=== PATIENT | female | born 1980 | race Caucasian/White ===

== ENCOUNTER → 2017-03-20 | Outpatient (CLI) | payer BC ==
--- NOTE | 2017-03-20 16:44 | ECHOF ---
Referral Reason:I49.9 arrhythmia MEASUREMENTS -------- HEIGHT: 170.2 cm WEIGHT: 61.2 kg BP: RVIDd: 2.3 cm (< 3.3) IVSd: 0.8 cm (0.6 - 1.1) LVIDd: 4.2 cm (3.9 - 5.3) LVPWd: 0.8 cm (0.6 - 1.1) IVSs: 1.6 cm LVIDs: 2.4 cm LVPWs: 1.6 cm LAESV Index (A-L): 12.47 ml/m Ao Diam: 2.5 cm (2.0 - 3.7) AV Cusp: 1.9 cm (1.5 - 2.6) LA Diam: 1.9 cm (2.7 - 3.8) MV EXCURSION: 11.540 mm (> 18.000) MV EF SLOPE: 100 mm/s (70 - 150) EPSS: 0.9 cm MV E Gregg: 0.79 m/s MV DecT: 156 ms MV A Gregg: 0.69 m/s MV E/A Ratio: 1.14 RAP: 5.00 mmHg RVSP: 19.22 mmHg FINDINGS -------- Sinus rhythm. This was a technically good study. Left ventricular wall thickness is normal. Overall left ventricular systolic function is low-normal with, an EF between 50 - 55 %. The right ventricle is normal in size and function. The left atrium is normal in size. The right atrium is normal in size. The aortic valve is trileaflet, and appears structurally normal. No aortic stenosis or regurgitation. Mild mitral regurgitation is present. Mild tricuspid regurgitation present. The right ventricular systolic pressure, as measured by Doppler, is 19.22mmHg. Pulmonic valve appears structurally normal. The aortic root size is normal. The pericardium is normal. CONCLUSIONS -------- 1. Sinus rhythm. 2. Mild tricuspid regurgitation present. 3. The right ventricular systolic pressure, as measured by Doppler, is 19.22mmHg. 4. Pulmonic valve appears structurally normal. 5. The aortic root size is normal. 6. The pericardium is normal. 7. This was a technically good study. 8. Left ventricular wall thickness is normal. 9. Overall left ventricular systolic function is low-normal with, an EF between 50 - 55 %. 10. The right ventricle is normal in size and function. 11. The left atrium is normal in size. 12. The right atrium is normal in size. 13. The aortic valve is trileaflet, and appears structurally normal. No aortic stenosis or regurgitation. 14. Mild mitral regurgitation is present. BEHAVIORAL SCIENCES DEPARTMENT CHAIR: Stefania Rogers RDCS
== END | disposition home or self-care (01) ==
LOC: RADECHMAIN 12:39
PROVIDERS: ATTEND Family Medicine
DX: I08.1 Rheumatic disorders of both mitral and tricuspid valves (principal)
CPT/HCPCS: 93270; 93271; 93306

== ENCOUNTER → 2017-08-15 | Outpatient (CLI) | payer BC ==
--- NOTE | 2017-08-15 20:00 | CT ---
EXAMINATION TYPE: CT urogram wo/w con DATE OF EXAM: 08/15/2017 HISTORY: Abnormal IVP from [facility]. Right flank pain x 4 weeks getting progressivel y worse. CT DLP: 643.80mGycm Automated Exposure Control for Dose Reduction was Utilized. CONTRAST: CT scan of the abdomen and pelvis is performed without and with IV Contrast, patient injected with 10 0 mL of Omnipaque 300. COMPARISON: 05/20/2014 FINDINGS: Lung bases are clear. Noncontrast images show no renal calculus. The liver spleen pancreas appear normal. Bile ducts are not dilated. Gallbladder appears absent. I see no intestinal wall thickening. There are no dilated loops. Bladder distends smoothly. There is no ascites. There is no sign of a pelvic mass. Kidneys show satisfactory contrast opacification. There is no hydronephrosis. Ureters are not dilated . There is no evidence of a renal mass. I see no bony destructive process. CONCLUSION: Negative CT scan of the abdomen and pelvis. No adverse change compared to old exam. No evidence of re nal mass or obstruction. Normal renal function.
== END | disposition home or self-care (01) ==
LOC: RADCTMAIN 18:36
PROVIDERS: ATTEND Urology
DX: N20.1 Calculus of ureter (principal)
CPT/HCPCS: 74178; 74400; Q9967

== ENCOUNTER → 2017-08-21 | Outpatient (CLI) | payer BC ==
--- NOTE | 2017-08-21 10:02 | US ---
EXAMINATION TYPE: US gallbladder DATE OF EXAM: 08/21/2017 COMPARISON: CTs dated 08/15/2017 and 08/20/2013. CLINICAL HISTORY: R10.11 RUQ pain, intermittent nausea x 1 month; IBS EXAM MEASUREMENTS: Liver Length: 15.0 cm Gallbladder Wall: 0.2 cm CBD: 0.3 cm Right Kidney: 9.9 x 5.8 x 4.6 cm Pancreas: wnl Liver: small, hyperechoic, oval focus is noted in right upper lobe and size = 0.9 x 0.7 x 0.5cm. Thi s could represent a small hemangioma. This is not identified on the prior CTs dated 08/15/2017 and 2013. Gallbladder: wnl Evidence for sonographic Brooks's sign: tender at right inferior subcostal area CBD: wnl Right Kidney: wnl IMPRESSION: 1. No sonographic evidence of cholelithiasis or acute cholecystitis. 2. Subcentimeter hyperechoic hepatic lesion not identified on the prior CTs. In a patient of this age group without background hepatocellular disease statistically this represents a small hemangioma. Fo llow-up ultrasound could be performed in 6 months for further evaluation of stability.
--- NOTE | 2017-08-21 13:04 | NM ---
EXAMINATION TYPE: NM hepatobiliary w EF DATE OF EXAM: 08/21/2017 COMPARISON: Gallbladder ultrasound 08/21/2017 HISTORY: Right upper quadrant pain, R 10.11 TECHNIQUE: After the intravenous administration of 5.32 mCi Tc 99m Mebrofenin hepatobiliary scintigra phy is performed. Immediate images post injection. Study was performed on protocol with 8 fluid ounc es of Ensure Plus by mouth. FINDINGS: There is satisfactory initial accumulation of tracer by the liver. The gallbladder is visualized wit hin 10 minutes. The small bowel activity is noted within 28 minutes. At one hour 8 ounces of oral e nsure plus is given to mimic CCK and gallbladder ejection fraction is calculated at 76 %, in the norm al range. Therefore there is no scintigraphic evidence of cystic or common bile duct obstruction to suggest acute cholecystitis or gallbladder dyskinesia. IMPRESSION: Exam is within normal limits.
== END ==
LOC: RADUSMAIN 09:00
PROVIDERS: ATTEND Surgery
DX: K76.9 Liver disease, unspecified (principal)
CPT/HCPCS: 76705; 78226; A9537

== ENCOUNTER → 2017-08-25 | Day surgery (SDC) | payer BC ==
[2017-08-24 12:04] VITALS: BMI 20.3
[~2017-08-25] MED LIST: GLYCOPYRROLATE 0.2 MG/ML 2 ML VIAL ONE; LACTATED RINGERS 1,000 ML IV SCH; LIDOCAINE 1% 20 ML VIAL (10MG/ML) FOR IV START INTRADERMA ONE; PROPOFOL 10 MG/ML 20 ML VIAL IV ONE; fentaNYL (PF) 50 MCG/ML 2 ML AMP ONE
[2017-08-25 12:29] VITALS: TEMP 97.6
--- NOTE | 2017-08-25 12:44 | P.GSHP ---
History of Present Illness H&P Date: 08/25/17 Chief Complaint: Gastritis This a 37-year-old female referred by Dr. Justino Montes. Patient was a safer EGD. She's had issues of epigastric pain. Her recent ultrasound and HIDA scan are within normal limits. Past Medical History Past Medical History: Seizure Disorder Additional Past Medical History / Comment(s): HAD FEBRILE SEIZURES UP TO AGE 9 NO SEIZURES SINCE CHILDHOOD. ABD AND RT FLANK PAIN. KIDNEY STONES History of Any Multi-Drug Resistant Organisms: ESBL Date of last positivie culture/infection: 06/24/16 MDRO Source:: URINE ESBL E.COLI Past Surgical History: No Surgical Hx Reported Additional Past Surgical History / Comment(s): LAPAROSCOPY FOR ENDOMETRIOSIS. D & C. HYSTEROSCOPY Past Anesthesia/Blood Transfusion Reactions: Motion Sickness Additional Past Anesthesia/Blood Transfusion Reaction / Comment(s): VERTIGO Smoking Status: Former smoker - Past Family History Mother Family Medical History: No Reported History Medications and Allergies Home Medications Medication Instructions Recorded Confirmed Type LORazepam [Ativan] 4 mg PO HS 05/13/15 08/25/17 History Zinc 50 mg PO DAILY 05/13/15 08/25/17 History Cholecalciferol (Vitamin D3) 2,000 unit PO DAILY 08/24/17 08/25/17 History [Vitamin D3] Cyanocobalamin (Vitamin B-12) 5,000 mcg PO DAILY 08/24/17 08/25/17 History [Vitamin B12] Ibuprofen [Motrin] 600 mg PO HS PRN 08/24/17 08/25/17 History l-Norgest/E.estradiol-E.estrad 1 tab PO DAILY 08/24/17 08/25/17 History [Seasonique 0.15-0.03-0.01 Tab] Allergies Allergy/AdvReac Type Severity Reaction Status Date / Time No Known Allergies Allergy Verified 08/25/17 12:32 Surgical - Exam Vital Signs Temp Pulse Resp BP Pulse Ox 97.6 F 83 16 118/77 99 08/25/17 12:28 08/25/17 12:28 08/25/17 12:28 08/25/17 12:28 08/25/17 12:28 - General well developed, no distress - Eyes PERRL - ENT normal pinna - Neck no masses - Respiratory normal expansion - Cardiovascular Rhythm: regular - Abdomen Abdomen: soft, non tender Assessment and Plan Assessment: Epigastric pain, gastritis. We'll perform EGD.
--- NOTE | 2017-08-25 12:54 | P.OP ---
Date of Procedure: 08/25/17 Preoperative Diagnosis: Gastritis Postoperative Diagnosis: Mild antral gastritis Procedure(s) Performed: EGD Anesthesia: MAC Surgeon: Kris Rae Pathology: other (Antrum) Condition: stable Disposition: PACU Description of Procedure: Patient's placed on the endoscopy table lateral position. Received IV sedation. The gastroscope placed oropharynx passed in the esophagus and into the stomach. Scope was then placed through the pylorus. The first and second portion of the duodenum appeared normal. The scope was then brought back the antrum this. Mildly inflamed. A biopsies was performed. The scope was unretroflexed and remainder of the stomach appeared normal. There was no hiatal hernia seen. The GE junction was at 40 cm the distal esophagus appeared normal. The proximal esophagus was normal. Scope was withdrawn for patient.
[2017-08-25 13:31] VITALS: BP 114/81; PULSE 84; RESP 16
== END ==
LOC: ORWHC2ENDO 11:55
PROVIDERS: ATTEND Surgery
DX: K29.50 Unspecified chronic gastritis without bleeding (principal); G40.909 Epilepsy, unspecified, not intractable, without status epilepticus; Z79.3 Long term (current) use of hormonal contraceptives; Z79.899 Other long term (current) drug therapy; Z86.19 Personal history of other infectious and parasitic diseases; Z87.891 Personal history of nicotine dependence
CPT/HCPCS: 43239; 81025; 88305; 88342; J3010; J2704

== ENCOUNTER 2017-08-30 16:31 | Emergency (ER) | payer BC ==
[2017-08-30] MEDS ORDERED: SODIUM CHLORIDE 0.9% 500 ML IV STA (17:23)
[2017-08-30] MEDS ORDERED: SODIUM CHLORIDE 0.9% 1,000 ML IV STA (17:23)
--- NOTE | 2017-08-30 17:35 | ED ---
General Adult HPI - General Chief complaint: Chest Pain Stated complaint: Chest Pain Time Seen by Provider: 08/30/17 17:01 Source: patient, RN notes reviewed, old records reviewed Mode of arrival: wheelchair Limitations: no limitations - History of Present Illness Initial comments: Chief complaint and history of present illness is a 37-year-old female here with a complaint of not feeling well for approximately 2 days. She feels somewhat lightheaded. She's taken meclizine. Also states in a great deal of pressure. She is currently going through a divorce. Describes her chest his chest heaviness. She tried Ativan without much resolution at home. Recurrent vertigo. Also some tingling around her lips and hands. Recent history of some sinus congestion. - Related Data Home Medications Medication Instructions Recorded Confirmed LORazepam [Ativan] 2 mg PO DAILY PRN 05/13/15 08/30/17 Zinc 50 mg PO DAILY 05/13/15 08/30/17 Cholecalciferol (Vitamin D3) 2,000 unit PO DAILY 08/24/17 08/30/17 [Vitamin D3] l-Norgest/E.estradiol-E.estrad 1 tab PO DAILY 08/24/17 08/30/17 [Seasonique 0.15-0.03-0.01 Tab] Meclizine HCl 12.5 mg PO DAILY PRN 08/30/17 08/30/17 Allergies Allergy/AdvReac Type Severity Reaction Status Date / Time No Known Allergies Allergy Verified 08/30/17 17:01 Review of Systems ROS Statement: Those systems with pertinent positive or pertinent negative responses have been documented in the HPI. Review of systems. Patient denies any visual acuity changes no headache no stiff neck mild upper respiratory congestion. She describes her chest his chest heaviness which does increase with deep breathing. She's had vertigo. Reports she's treated herself with Ativan and meclizine. Her pulse goes between 50 and 145 as measured with a pulse oximeter at home. Patient states she's had cardiac monitors before and is scheduled to follow up with a preparole counseling aide. All systems were reviewed past medical problems or vertigo, mitral valve prolapse, anxiety. She states she is under great deal of stress could she is currently undergoing a divorce. The patient's other medical problems including having had febrile seizures last one was she was 9 years old. Her surgeries include laparoscopic surgery for endometriosis. She also had a large right ovarian cyst removed with oophorectomy on the right side. Family history significant for cancers and include breast and lung. The patient has seasonal ALLERGIES. She quit smoking 15 years ago decreased alcohol rarely socially. Patient reports she has not had a menstrual cycle for several months and last time she was sexually active was was in May. Since then she's had several negative test. The patient had an EGD recently and was told to have mild gastritis but was not put on any stomach preparations. The patient also had a CAT scan with and without contrast because of right flank pain. The final conclusion was a negative computed tomography scan of the abdomen and pelvis no adverse change compared to old exam. No evidence of renal mass or obstruction. Normal renal function as read by Dr. Diaz. The testicle been requested by Dr. Lamberto Head , urologist. ROS Other: All systems not noted in ROS Statement are negative. Past Medical History Past Medical History: Seizure Disorder History of Any Multi-Drug Resistant Organisms: ESBL Date of last positivie culture/infection: 06/24/16 MDRO Source:: URINE ESBL E.COLI Past Surgical History: No Surgical Hx Reported Additional Past Surgical History / Comment(s): upper GI biopsy Past Psychological History: Anxiety Smoking Status: Former smoker Past Alcohol Use History: None Reported Past Drug Use History: None Reported General Exam - General Exam Comments Initial Comments: General: The patient is awake and alert, is admittedly anxious. The chief complaint of chest heaviness. Vital signs temperature 97.6 pulse initially 134. EKG showed a heart rate of 100. Respiratory rate 20 pulse ox on percent room air. Blood pressure 140/90 Eye: Pupils are equal, round and reactive to light, extra-ocular movements are intact ; there is normal conjunctiva bilaterally. No signs of icterus. Ears, nose, mouth and throat: There are moist mucous membranes and no oral lesions. Neck: The neck is supple, there is no tenderness, no anterior cervical lymphadenopathy , thyroid not enlarged. Cardiovascular: There is a regular rate and rhythm. No murmur, rub or gallop is appreciated. Complains of a chest heaviness. Respiratory rate 20 pulse ox 100% room air blood pressure 140/90 patient is admittedly anxious. Respiratory: Lungs are clear to auscultation, respirations are non-labored, breath sounds are equal. No wheezes, stridor, rales, or rhonchi. Gastrointestinal: Soft, non-distended, non-tender abdomen without masses or organomegaly noted. There is no rebound or guarding present. No CVA tenderness. Bowel sounds are unremarkable. Back: There is no tenderness to palpation in the midline. There is no obvious deformity. No rashes noted. She has had chronic right flank pain worked up by urology and reported to be negative at this point. Musculoskeletal: Normal ROM, no tenderness, There is no pedal edema. There is no calf tenderness or swelling. Sensation intact. Neurological: No neuro deficits. No evidence of any focal or lateralizing findings. Skin: Skin is warm and dry and no rashes or lesions are noted. Psychiatric: Admittedly anxious, under great deal of stress. Patient reports she is going through a divorce. Limitations: no limitations Course Vital Signs 08/30/17 08/30/17 08/30/17 16:31 18:00 19:00 Temperature 97.6 F Pulse Rate 134 H 78 82 Respiratory 20 18 18 Rate Blood Pressure 140/90 156/78 138/76 O2 Sat by Pulse 100 99 99 Oximetry EKG Findings - EKG Comments: EKG Findings:: EKG was done at 1653 showing normal sinus rhythm no acute ST elevation no ectopy no ischemic changes. Rate 100 KS interval is 140 QRS [address] Pacheco Medical Decision Making - Medical Decision Making Medical decision making; this is a 37-year-old female who is admittedly anxious. She is going through divorce. She's had on-again off-again dizziness which she treats with meclizine. Also anxiety and chest heaviness or pressure. Labs show white count of 5.9 hemoglobin 13 hematocrit of 40, potassium 4.1 with a INR 1.0. D-dimer 0.58. BUN 11 creatinine 0.7 to GFR greater than 60. Glucose 127. Amylase lipase normal limits. Troponin and CK and MB normal. Influenza AB reported to be negative X-ray the chest was done and reviewed by radiologist his final impression is normal chest. No change. As read by Dr. Diaz. The patient had a CT of the chest due to her chest heaviness and more rapid heart rate initially. The patient's scan was reviewed by radiologist and his final impression is normal exam. No evidence of pulmonary embolism. As read by Dr. Diaz. Patient states she is feeling better. We did discuss anxiety and possibly even depression which she should discuss with her family physician. Advised to take meclizine 25 mg 3 times daily rather than once every so often. She states she takes it once a goes away almost immediately. We did discuss benign positional vertigo as well. - Lab Data Result diagrams: 08/30/17 17:47 08/30/17 17:47 Lab Results 08/30/17 08/30/17 08/30/17 Range/Units 17:47 17:47 17:47 WBC 5.9 (3.8-10.6) k/uL RBC 4.50 (3.80-5.40) m/uL Hgb 13.2 (11.4-16.0) gm/dL Hct 40.7 (34.0-46.0) % MCV 90.4 (80.0-100.0) fL MCH 29.3 (25.0-35.0) pg MCHC 32.4 (31.0-37.0) g/dL RDW 12.7 (11.5-15.5) % Plt Count 180 (150-450) k/uL Neutrophils % 81 % Lymphocytes % 13 % Monocytes % 4 % Eosinophils % 1 % Basophils % 0 % Neutrophils # 4.7 (1.3-7.7) k/uL Lymphocytes # 0.8 L (1.0-4.8) k/uL Monocytes # 0.2 (0-1.0) k/uL Eosinophils # 0.1 (0-0.7) k/uL Basophils # 0.0 (0-0.2) k/uL PT (9.0-12.0) sec INR (<1.2) APTT (22.0-30.0) sec D-Dimer (<0.60) mg/L FEU Sodium 145 (137-145) mmol/L Potassium 4.1 (3.5-5.1) mmol/L Chloride 107 (98-107) mmol/L Carbon Dioxide 22 (22-30) mmol/L Anion Gap 16 mmol/L BUN 11 (7-17) mg/dL Creatinine 0.72 (0.52-1.04) mg/dL Est GFR (MDRD) Af Amer >60 (>60 ml/min/1.73 sqM) Est GFR (MDRD) Non-Af >60 (>60 ml/min/1.73 sqM) Glucose 127 H (74-99) mg/dL Calcium 10.1 (8.4-10.2) mg/dL Magnesium 2.0 (1.6-2.3) mg/dL Total Bilirubin 0.6 (0.2-1.3) mg/dL AST 22 (14-36) U/L ALT 37 (9-52) U/L Alkaline Phosphatase 40 (38-126) U/L Total Creatine Kinase 59 (30-135) U/L CK-MB (CK-2) <0.2 (0.0-2.4) ng/mL CK-MB (CK-2) Rel Index Troponin I <0.012 (0.000-0.034) ng/mL Total Protein 7.9 (6.3-8.2) g/dL Albumin 4.7 (3.5-5.0) g/dL Amylase 69 (30-110) U/L Lipase 112 (23-300) U/L 08/30/17 Range/Units 17:47 WBC (3.8-10.6) k/uL RBC (3.80-5.40) m/uL Hgb (11.4-16.0) gm/dL Hct (34.0-46.0) % MCV (80.0-100.0) fL MCH (25.0-35.0) pg MCHC (31.0-37.0) g/dL RDW (11.5-15.5) % Plt Count (150-450) k/uL Neutrophils % % Lymphocytes % % Monocytes % % Eosinophils % % Basophils % % Neutrophils # (1.3-7.7) k/uL Lymphocytes # (1.0-4.8) k/uL Monocytes # (0-1.0) k/uL Eosinophils # (0-0.7) k/uL Basophils # (0-0.2) k/uL PT 9.9 (9.0-12.0) sec INR 1.0 (<1.2) APTT 25.1 (22.0-30.0) sec D-Dimer 0.58 (<0.60) mg/L FEU Sodium (137-145) mmol/L Potassium (3.5-5.1) mmol/L Chloride (98-107) mmol/L Carbon Dioxide (22-30) mmol/L Anion Gap mmol/L BUN (7-17) mg/dL Creatinine (0.52-1.04) mg/dL Est GFR (MDRD) Af Amer (>60 ml/min/1.73 sqM) Est GFR (MDRD) Non-Af (>60 ml/min/1.73 sqM) Glucose (74-99) mg/dL Calcium (8.4-10.2) mg/dL Magnesium (1.6-2.3) mg/dL Total Bilirubin (0.2-1.3) mg/dL AST (14-36) U/L ALT (9-52) U/L Alkaline Phosphatase (38-126) U/L Total Creatine Kinase (30-135) U/L CK-MB (CK-2) (0.0-2.4) ng/mL CK-MB (CK-2) Rel Index Troponin I (0.000-0.034) ng/mL Total Protein (6.3-8.2) g/dL Albumin (3.5-5.0) g/dL Amylase (30-110) U/L Lipase (23-300) U/L Disposition Clinical Impression: Hyperventilation syndrome, Benign positional vertigo Disposition: HOME SELF-CARE Condition: Stable Instructions: Dizziness (ED), Benign Paroxysmal Positional Vertigo (ED), Hyperventilation (ED) Additional Instructions: Talk tear family doctor about anxiety and depression. Continue with home medications including meclizine for dizziness. Changes slowly. Referrals: Justino Montes DO [Primary Care Provider] - 1-2 days Time of Disposition: 20:44
[2017-08-30 18:03] LABS: Basophils % (A) 0 %; Eosinophils # (A) 0.1 k/uL (0-0.7); Eosinophils % (A) 1 %; HCT 40.7 % (34.0-46.0); HGB 13.2 gm/dL (11.4-16.0); Lymphocytes # (A) 0.8 k/uL (1.0-4.8); Lymphocytes % (A) 13 %; MCH 29.3 pg (25.0-35.0); MCHC 32.4 g/dL (31.0-37.0); MCV 90.4 fL (80.0-100.0); Mean Platelet Volume 8.5; Monocytes # (A) 0.2 k/uL (0-1.0); Monocytes % (A) 4 %; Neutrophils # (A) 4.7 k/uL (1.3-7.7); Neutrophils % (A) 81 %; Platelet Count 180 k/uL (150-450); RDW 12.7 % (11.5-15.5); WBC 5.9 k/uL (3.8-10.6)
--- NOTE | 2017-08-30 18:08 | XR ---
EXAMINATION TYPE: XR chest 2V DATE OF EXAM: 08/30/2017 COMPARISON: 09/25/2014 HISTORY: Chest tightness TECHNIQUE: Frontal and lateral views of the chest are obtained. FINDINGS: Heart and mediastinum are normal. Lungs are clear. Diaphragm is normal. Bony thorax is nor mal. There are chest leads. IMPRESSION: Normal chest. No change.
[2017-08-30 18:09] LABS: ALT 37 U/L (9-52); AST 22 U/L (14-36); Albumin 4.7 g/dL (3.5-5.0); Alkaline Phosphatase 40 U/L (38-126); Amylase 69 U/L (30-110); Anion Gap 16 mmol/L; Blood Urea Nitrogen 11 mg/dL (7-17); Calcium 10.1 mg/dL (8.4-10.2); Carbon Dioxide 22 mmol/L (22-30); Chloride 107 mmol/L (98-107); Glucose 127 mg/dL (74-99); Lipase 112 U/L (23-300); Potassium 4.1 mmol/L (3.5-5.1); Sodium 145 mmol/L (137-145); Total Bilirubin 0.6 mg/dL (0.2-1.3); Total Protein 7.9 g/dL (6.3-8.2)
[2017-08-30 18:17] LABS: D-Dimer 0.58 mg/L FEU (<0.60); Partial Thromboplastin Time 25.1 sec (22.0-30.0); Prothrombin Time 9.9 sec (9.0-12.0)
[2017-08-30 18:19] LABS: Creatine Kinase 59 U/L (30-135)
[2017-08-30 18:32] LABS: Creatine Kinase MB <0.2 ng/mL (0.0-2.4); Troponin I <0.012 ng/mL (0.000-0.034)
[2017-08-30] MEDS ORDERED: RX INFO: IV CONTRAST WAS GIVEN 1 EACH MISC MISCELLANE PRN (18:44)
--- NOTE | 2017-08-30 19:39 | CT ---
EXAMINATION TYPE: CT angio chest DATE OF EXAM: 08/30/2017 7:31 PM COMPARISON: NONE HISTORY: Chest heaviness x 4 days with nausea and dizziness. CT DLP: 136.30 mGycm Automated exposure control for dose reduction was used. CONTRAST: CTA scan of the thorax is performed with IV Contrast, patient injected with 54 mL of Omnipaque 350, p ulmonary embolism protocol. There are 3-D post processed images.. FINDINGS: The lungs are clear of infiltrate. There is no evidence of a pulmonary mass. There is no pleural effu ishaan. Heart size is normal. There is no mediastinal adenopathy. Thoracic aorta appears normal. There is no sign of aneurysm or dissection. I see no filling defects in the pulmonary arteries. Bony thorax appears normal. IMPRESSION: NORMAL EXAM. NO EVIDENCE OF PULMONARY EMBOLISM.
[2017-08-30 21:26] VITALS: BP 136/85; PULSE 85; RESP 16; TEMP 98.5
== END 2017-08-30 21:27 | disposition home or self-care (01) ==
LOC: EC 16:31
DX: F45.8 Other somatoform disorders (principal); H81.10 Benign paroxysmal vertigo, unspecified ear; Z87.891 Personal history of nicotine dependence; Z79.3 Long term (current) use of hormonal contraceptives; Z79.899 Other long term (current) drug therapy
CPT/HCPCS: 36415; 93005; 85379; 80053; 82150; 82550; 82553; 83690; 83735; 84484; 85025; 85610; 85730; 87502; 71046; 71275; 99285; 96360; 96361 ×3; Q9967

== ENCOUNTER → 2018-10-01 | Outpatient (CLI) | payer OTHER ==
--- NOTE | 2018-10-02 07:50 | US ---
EXAMINATION TYPE: US pelvis complete transvag DATE OF EXAM: 10/01/2018 COMPARISON: CT CLINICAL HISTORY: R10.2 Pelvic Pain. History of endometriosis. TECHNIQUE: Transvaginal (TV) and Transabdominal (TA) . Transabdominal sonographic images of the pel vis were acquired. Transvaginal sonographic images were medically necessary to better assess the fol lowing anatomy: ovaries Date of LMP: 6 weeks ago EXAM MEASUREMENTS: Uterus: 6.7 x 3.4 x 5.0 cm Endometrial Stripe: 0.2 cm Right Ovary: 2.1 x 0.9 x 1.7 cm Left Ovary: 1.9 x 1.6 x 1.0 cm Patient on control and only has a cycle every 3 months. 1. Uterus: Retroverted small probable fibroid located right/posterior measures 1.4 x 0.7 x 1.3 cm. 2. Endometrium: wnl 3. Right Ovary: wnl 4. Left Ovary: wnl 5. Bilateral Adnexa: wnl 6. Posterior cul-de-sac: no free fluid IMPRESSION: Retroverted uterus with probable small posterior 1.4 cm intramural leiomyoma. Otherwise u nremarkable ultrasound.
== END | disposition home or self-care (01) ==
LOC: RADUSWWP 15:40
PROVIDERS: ATTEND Obstetrics & Gynecology
DX: N85.4 Malposition of uterus (principal); R10.2 Pelvic and perineal pain
CPT/HCPCS: 76830; 76856

== ENCOUNTER → 2023-06-23 | Outpatient (CLI) | payer BC | END | disposition home or self-care (01) | LOC: RADCTMAIN 15:52 | PROVIDERS: ATTEND Urology | DX: Z53.9 Procedure and treatment not carried out, unspecified reason (principal) ==

== ENCOUNTER → 2023-08-23 | Outpatient (CLI) | payer BC ==
--- NOTE | 2023-08-30 16:23 | CT ---
EXAMINATION TYPE: CT abdomen pelvis wo/w con CT DLP: 2043 mGycm, Automated exposure control for dose reduction was used. DATE OF EXAM: 08/23/2023 12:42 PM COMPARISON: Reference CT urogram 08/15/[address] abdomen pelvis 05/20/2014 CLINICAL INDICATION:Female, 43 years old with history of R10.9 UNSPECIFIED ABDOMINAL PAIN,R31.1; righ t renal pain x3 years TECHNIQUE: Oral contrast was given. Axial CT of the abdomen and pelvis was performed without IV contr ast first, followed by postcontrast imaging. Three-minute delayed images through the kidneys were als o obtained. Sagittal and coronal reformats were created on a separate workstation. Contrast used:100 mL of Isovue 300 with IV Contrast, (none if empty) Oral contrast used: with Oral Contrast (none if empty) FINDINGS: LOWER CHEST: Lung bases are clear. Heart size is normal. ABDOMEN LIVER: A few small hypodense hepatic lesions, too small to characterize but a couple are fairly circu mscribed and do not seem to fill in on delayed imaging, whereas a couple of others become more isoatt enuating and less visible on delayed imaging; this probably reflects a combination of benign lesions such as cysts and hemangiomas. No concerning liver mass is suggested. GALLBLADDER AND BILE DUCTS: Gallbladder is partially contracted, grossly unremarkable. No biliary dil atation. PANCREAS: Unremarkable. SPLEEN: Unremarkable. ADRENAL GLANDS: Unremarkable. KIDNEYS AND URETERS: No evidence of renal/ureteral calculus or hydronephrosis. Postcontrast, the kidn eys enhance symmetrically with normal cortical medullary distinction and no evidence of mass. Contras t is seen in the collecting systems and upper ureters on delayed imaging without evidence of hydronep hrosis. PELVIS BLADDER: Unremarkable bladder. There are several pelvic phleboliths. REPRODUCTIVE: Uterus and adnexal regions appear grossly unremarkable, though not well assessed by CT. ABDOMEN & PELVIS STOMACH AND BOWEL: Contrast traverses the stomach and small bowel loops without evidence of obstructi on. Appendix is seen on axial image 56, and appears within normal limits. Contrast is present mixed w ith a moderate amount of stool through approximately the first third of the colon. Moderate stool thr oughout the more distal colon. Several sigmoid diverticula without evidence of diverticulitis. PERITONEUM/RETROPERITONEUM: No evidence of pneumoperitoneum or free fluid. VASCULATURE: Aorta and major branches are grossly unremarkable. No AAA. Portal veins are enhancing. Splenic vein is patent. LYMPH NODES: No gross evidence for lymphadenopathy. SOFT TISSUE/ABDOMINAL WALL: Tiny fat-containing umbilical hernia. MUSCULOSKELETAL: No acute osseous abnormalities. IMPRESSION: 1. Unremarkable kidneys. No evidence of calculus, hydronephrosis, or mass. 2. No evidence of bowel obstruction, free fluid or free air. Normal appendix. 3. Moderate colonic stool, correlate for constipation. A few sigmoid diverticula are suggested witho ut evidence of diverticulitis. 4. A few small hypodense hepatic lesions, probably benign.
== END | disposition home or self-care (01) ==
LOC: RADCTMAIN 10:20
PROVIDERS: ATTEND Urology
DX: K76.9 Liver disease, unspecified (principal); R19.5 Other fecal abnormalities; R10.9 Unspecified abdominal pain; R31.1 Benign essential microscopic hematuria
CPT/HCPCS: 74178; Q9967

== ENCOUNTER → 2024-04-08 | Outpatient (CLI) | payer BC ==
--- NOTE | 2024-04-09 09:46 | MR ---
EXAMINATION TYPE: MR liver wo/w con DATE OF EXAM: 04/08/2024 5:49 PM CLINICAL INDICATION: Female, 43 years old with history of K76.9 LIVER DISEASE, UNSPECIFIED; [facility], COMPARISON: CT scan abdomen from 08/23/2023, 08/02/2021, 09-02 18 ., 05/20/2014.. TECHNIQUE: Multiplanar multi-sequence imaging was performed without contrast. Post contrast imaging was performed. Post IV contrast subtraction images were also submitted for review. IV Contrast: cc FINDINGS: LOWER CHEST: No gross irregularity. ABDOMEN Liver: No evidence for hepatic steatosis or cirrhosis. High T2 signal 11 mm lesion in the right hepat ic lobe with thick area of peripheral enhancement which progressively gets larger on delayed imaging on the left side of post contrast images measures up to 8 mm the cystic portion in totality measures 16 mm. Another lesion more superiorly in the right hepatic lobe is also visualized measuring in total ity 9 mm with evidence of progressive peripheral enhancement and delayed imaging.. Other lesions in t he right hepatic dome are compatible with simple cysts. Gallbladder and Bile ducts: No evidence for ductal dilation, or biliary stricture or evidence of chol edocholithiasis. The gallbladder is within normal limits. Pancreas: No ductal dilation. No evidence for solid mass. Spleen: 8mm enhancing lesion most compatible with splenic hemangioma. Adrenal glands: Unremarkable. Kidneys: No evidence for obstructive uropathy. No suspicious renal masses. Stomach and Bowel: No evidence for bowel wall thickening or evidence for obstruction. Retroperitoneum/Peritoneum: No evidence of pneumoperitoneum or free fluid. Vasculature: No aortic aneurysm. Musculoskeletal: The osseous structures appear intact. Lymph Nodes: No gross evidence for lymphadenopathy. Abdominal wall: Unremarkable. IMPRESSION: 1. Indeterminate hepatic lesion with peripheral mural enhancing nodule which progressively enlarges on delayed imaging. This finding is not seen on 05/20/2014 is faintly visible on 08/15/2017 exam where i t measured 10 mm. Consider follow-up in 6-12 months to ensure stability. 2. Other simple appearing hepatic cysts and probable hemangioma noted. 3. Probable splenic hemangioma measuring 8 mm.
== END | disposition home or self-care (01) ==
LOC: RADMRIMAIN 16:35
PROVIDERS: ATTEND Internal Medicine Gastroenterology
DX: K76.89 Other specified diseases of liver (principal)
CPT/HCPCS: 74183

== ENCOUNTER 2024-05-07 06:27 | Day surgery (SDC) | payer BC ==
[2024-05-06 10:39] VITALS: BMI 25.3
[2024-05-07] MEDS: IV FLUID CONTINUATION 1,000 ML IV ONE (07:03)
[2024-05-07] MEDS: LIDOCAINE 1% (10MG/ML) FOR IV START INTRADERMA PRN (07:03)
[2024-05-07 07:09] VITALS: TEMP 97.1
[2024-05-07] MEDS: LACTATED RINGERS 1,000 ML IV SCH (07:12)
[2024-05-07] MEDS ORDERED: PROPOFOL 10 MG/ML 20 ML VIAL IV ONE (07:28)
[2024-05-07] MEDS ORDERED: LIDOCAINE 2% (PF) 20 MG/ML 5 ML VIAL ONE (07:28)
--- NOTE | 2024-05-07 07:49 | P.PCN ---
Date of Procedure: 05/07/24 Procedure(s) Performed: Brief history: Patient is a pleasant 45-year-old white female scheduled for an elective upper endoscopy as well as colonoscopy as a part of evaluation of abdominal pain, abdominal bloating, nausea and change in bowel habits for the last several years duration but the symptoms are progressively getting worse. Procedure performed: Esophagogastroduodenoscopy with biopsy Colonoscopy Preoperative diagnosis: Abdominal pain/nausea Abdominal bloating and change in bowel habits Anesthesia: MAC Procedure: After informed consent was obtained from the patient was brought into the endoscopy unit and IV sedation was administered by anesthesia under continuous monitoring. Initially upper endoscopy was done. The Olympus GF 160 video endoscope was inserted inserted into the mouth and esophagus intubated without any difficulty and was gradually advanced into the stomach and duodenum and carefully examined. The bulb and second part of the duodenum appeared normal. Biopsies were done from the duodenum rule out celiac disease. The scope was then withdrawn into the stomach adequately insufflated with air and upon careful examination the antrum had mild gastritis and biopsies were done from this area. Mucosa of the body, cardia and fundus appeared normal. The scope was the n withdrawn into the esophagus. The GE junction was located at 40 cm to the incisors. It appeared regular with no erythema erosions or ulcerations. Rest of the esophagus appeared normal. Patient tolerated the procedure well. At this time the patient continued to remain sedation. Initial digital rectal examination was normal. Olympus CF 160 video colonoscope was then inserted into the rectum and gradually advanced to the cecum without any difficulty. Careful examination was performed as the scope was gradually being withdrawn. The prep was excellent. Terminal ileum was intubated in 20 cm visualized and appeared normal. The cecum, ascending colon, transverse colon, descending colon, sigmoid colon and rectum appeared normal. Retroflexion was performed in the rectum and no lesions were noted. Patient tolerated the procedure well. Impression: 1. Upper endoscopy revealed mild antral gastritis but no evidence of esophagitis or peptic ulcer disease 2. Colonoscopy was within normal limits with no evidence of colorectal neoplasia Recommendations: Findings of this examination were discussed with the patient as well as her family. She was advised to follow-up with the biopsy results. She will be seen in the office in 3 to 4 weeks. Start MiraLAX 1 scoop daily and regulate bowel movements. Recommended repeat screening colonoscopy in 10 years.
[2024-05-07 08:07] VITALS: BP 131/82; PULSE 82; RESP 16
== END 2024-05-07 08:22 | disposition home or self-care (01) ==
LOC: ORWHC2ENDO 06:27
PROVIDERS: ATTEND Internal Medicine Gastroenterology
DX: R10.9 Unspecified abdominal pain
CPT/HCPCS: 43239; 45378; 81025; 88305

== ENCOUNTER 2024-07-31 23:12 | Emergency (ER) | payer BC ==
[2024-07-31 23:30] VITALS: TEMP 98
--- NOTE | 2024-07-31 23:42 | ED ---
General Adult HPI - General Chief complaint: Nausea/Vomiting/Diarrhea Stated complaint: NV Time Seen by Provider: 07/31/24 23:20 Source: patient, EMS, RN notes reviewed, old records reviewed Mode of arrival: EMS - History of Present Illness Initial comments: Patient is a 44-year-old female presents emergency department for nausea and vomiting and diarrhea and also had a near syncopal episode at home. Patient was sitting on the toilet while she was having an episode of diarrhea as well as nausea and vomiting. [place] lightheaded and that she was going to pass out. States she fell forward and struck her face on something pushing her glasses into her left cheek. States she was feeling lightheaded all day and feeling somewhat off. Denies any significant headache, chest pain, abdominal pain. Endorses the crampy discomfort with nonbloody diarrhea as well as episodes of nonbloody nonbilious emesis. No known sick contacts. Ate [employer] today. Has no other acute complaints at this time. States she felt like she almost passed out completely, and think she did not off. Denies any significant head trauma. Is not on blood thinners. Presents for further evaluation at this time. - Related Data Home Medications Medication Instructions Recorded Confirmed Cholecalciferol (Vitamin D3) 2,000 unit PO DAILY 08/24/17 05/06/24 [Vitamin D3] l-Norgest/E.estradiol-E.estrad 1 tab PO DAILY 08/24/17 05/07/24 [Seasonique 0.15-0.03-0.01 Tab] Meclizine HCl 12.5 mg PO DAILY PRN 08/30/17 05/07/24 Allergies Allergy/AdvReac Type Severity Reaction Status Date / Time gluten Allergy Abdominal Verified 07/31/24 23:31 Pain Penicillins AdvReac Rash/Hives Verified 07/31/24 23:31 Review of Systems ROS Statement: Those systems with pertinent positive or pertinent negative responses have been documented in the HPI. Review of Systems: CONST: Denies fever EYES: Denies blurry vision ENT: Denies nasal congestion C/V: Denies Chest pain RESP: Denies shortness of breath GI: Endorses crampy abdominal discomfort : Denies dysuria SKIN: Denies rash. MSK: Denies joint pain. NEURO: Denies headache ROS Other: All systems not noted in ROS Statement are negative. Past Medical History Past Medical History: Seizure Disorder Additional Past Medical History / Comment(s): febrile seizures, endometriosis History of Any Multi-Drug Resistant Organisms: ESBL, None Reported Date of last positivie culture/infection: 06/24/16 MDRO Source:: URINE ESBL E.COLI Past Surgical History: No Surgical Hx Reported Additional Past Surgical History / Comment(s): laproscopy for endometriosis, egd Past Anesthesia/Blood Transfusion Reactions: No Reported Reaction Additional Past Anesthesia/Blood Transfusion Reaction / Comment(s): no blood transfusion Past Psychological History: Anxiety Smoking Status: Former smoker Past Alcohol Use History: None Reported Past Drug Use History: None Reported General Exam - General Exam Comments Initial Comments: General: Appears in no acute distress. HEAD: Small amount of bruising over the left cheek however no obvious injury. Minimal tenderness to palpation. Teeth appear to line up with no jaw pain. Negative Porter sign. Negative raccoon eyes. EYES: EOMI. Pulls are 3 mm and equal bilaterally. Conjunctiva within normal limits. ENT: Hearing grossly intact, normal oropharynx. RESPIRATORY: Clear breath sounds bilaterally. No wheezes, rales, or rhonchi. C/V: Regular rate and rhythm. S1 and S2 auscultated, no edema, peripheral pulses 2+ and intact throughout ABD: Abd is soft, nontender, nondistended EXT: Normal range of motion, no obvious deformity SKIN: Small amount of bruising over the left cheek with no obvious wound or injury. NEURO: Alert and oriented x 4. No focal deficits. GCS is 15. Course Vital Signs 07/31/24 08/01/24 23:23 02:11 Temperature 98.0 F Pulse Rate 102 H 100 Respiratory 17 15 Rate Blood Pressure 159/96 118/85 O2 Sat by Pulse 100 98 Oximetry Medical Decision Making - Medical Decision Making Was pt. sent in by a medical professional or institution (, PA, WIRE REPAIRER, urgent care, hospital, or [facility]...) When possible be specific @ -No Did you speak to anyone other than the patient for history (EMS, parent, family, police, friend...)? What history was obtained from this source @ -No Did you review nursing and triage notes (agree or disagree)? Why? @ -I reviewed and agree with nursing and triage notes Were old charts reviewed (outside hosp., previous admission, EMS record, old EKG, old radiological studies, urgent care reports/EKG's, [facility] records)? Report findings @ -No old charts were reviewed Differential Diagnosis (chest pain, altered mental status, abdominal pain women, abdominal pain men, vaginal bleeding, weakness, fever, dyspnea, syncope, headache, dizziness, GI bleed, back pain, seizure, CVA, palpatations, mental health, musculoskeletal)? @ -Differential Syncope: Valvular disease, hypertrophic cardiomyopathy, pulmonary embolism, tamponade, tachycardia, bradycardia, MS, hypovolemia, hemorrhage, dissection, anemia, intracranial hemorrhage, seizure, hypoglycemia, carbon monoxide poisoning, this is not meant to be an all-inclusive list. EKG interpreted by me (3pts min.). @ -As above X-rays interpreted by me (1pt min.). @ -Chest x-ray reveals no obvious acute cardiopulmonary process. CT interpreted by me (1pt min.). @ -None done U/S interpreted by me (1pt. min.). @ -None done What testing was considered but not performed or refused? (CT, X-rays, U/S, labs)? Why? @ -Considered CT imaging the brain as well as facial bones however patient and I both agreed to defer at this time as she has no mental status changes, has no neurological complaints, and is very minimal mild head trauma. What meds were considered but not given or refused? Why? @ -I offered analgesia medications which were declined by the patient. Did you discuss the management of the patient with other professionals (professionals i.e. , PA, WIRE REPAIRER, lab, RT, psych nurse, renal social worker, plumbing installer, teacher, booking police officer, employment case manager)? Give summary @ -No Was smoking cessation discussed for >3mins.? @ -No Was critical care preformed (if so, how long)? @ -No Were there social determinants of health that impacted care today? How? (H omelessness, low income, unemployed, alcoholism, drug addiction, transportation, low edu. Level, literacy, decrease access to med. care, group home, rehab)? @ -No Was there de-escalation of care discussed even if they declined (Discuss DNR or withdrawal of care, Hospice)? DNR status @ -No What co-morbidities impacted this encounter? (DM, HTN, Smoking, COPD, CAD, Cancer, CVA, ARF, Chemo, Hep., AIDS, mental health diagnosis, sleep apnea, morbid obesity)? @ -None Was patient admitted / discharged? Hospital course, mention meds given and route, prescriptions, significant lab abnormalities, going to OR and other pertinent info. @ -Patient presents to the emergency department complaining of a syncopal episode in the setting of what seems like having a vasovagal episode from nausea vomiting and diarrhea. She also has minor head trauma however we will not obtain CT imaging at this time. Does not meet criteria for CT brain. We will obtain infectious labs, abdominal labs. Patient was in agreement this plan. She will be symptomatically treat with IV fluids and Zofran. Declines analgesia medications. Vital signs are within acceptable limits. EKG shows no signs of acute ischemia.Chest x-ray reveals no obvious acute cardiopulmonary process. Laboratory studies remarkable for mild leukocytosis of 11.5 which is likely reactive. Lactic acid is slightly elevated at 2.1. 2+ ketones in the urine. Remainder the workup unremarkable. On reevaluation, patient is ambulatory without any obvious acute symptoms. Still mild nausea. Vital signs are improved. Discussed results with patient. She will be discharged home at this time. We did discuss possibly obtaining CT imaging but as labs are relatively unremarkable, we both agreed to defer at this time. She will follow-up with her PCP. Given a starter pack of Zofran. Strict return precautions discussed. I instructed the patient to follow up with their PCP in the next 1-3 days. I explained that the patient should return to the emergency department if they experience any worsening symptoms. Strict return precautions were discussed with the patient. The patient expressed understanding of these instructions. I answered all questions that the patient had. The patient was discharged home in good condition with their prescriptions and follow up information. Undiagnosed new problem with uncertain prognosis? @ -No Drug Therapy requiring intensive monitoring for toxicity (Heparin, Nitro, Insulin, Cardizem)? @ -No Were any procedures done? @ -No Diagnosis/symptom? @ -Minor head trauma, Nausea and vomiting, syncope, diarrhea, dehydration Acute, or Chronic, or Acute on Chronic? @ -Acute Uncomplicated (without systemic symptoms) or Complicated (systemic symptoms)? @ -Uncomplicated Side effects of treatment? @ -No Exacerbation, Progression, or Severe Exacerbation? @ -No Poses a threat to life or bodily function? How? (Chest pain, USA, MS, pneumonia, PE, COPD, DKA, ARF, appy, cholecystitis, CVA, Diverticulitis, Homicidal, Suicidal, threat to staff... and all critical care pts) @ -Unlikely - Lab Data Result diagrams: 08/01/24 00:22 08/01/24 00:22 Lab Results 08/01/24 08/01/24 08/01/24 Range/Units 00:22 00:22 00:22 WBC 11.5 H (3.8-10.6) k/uL RBC 5.04 (3.80-5.40) m/uL Hgb 14.8 (11.4-16.0) gm/dL Hct 45.8 (34.0-46.0) % MCV 91.0 (80.0-100.0) fL MCH 29.4 (25.0-35.0) pg MCHC 32.3 (31.0-37.0) g/dL RDW 12.4 (11.5-15.5) % Plt Count 161 (150-450) k/uL MPV 8.9 Neutrophils % 91 % Lymphocytes % 4 % Monocytes % 4 % Eosinophils % 1 % Basophils % 0 % Neutrophils # 10.4 H (1.3-7.7) k/uL Lymphocytes # 0.5 L (1.0-4.8) k/uL Monocytes # 0.5 (0-1.0) k/uL Eosinophils # 0.1 (0-0.7) k/uL Basophils # 0.0 (0-0.2) k/uL PT 10.2 (10.0-12.5) sec INR 0.9 (<1.2) APTT 19.2 L (22.0-30.0) sec Sodium 140 (137-145) mmol/L Potassium 5.0 (3.5-5.1) mmol/L Chloride 106 (98-107) mmol/L Carbon Dioxide 19 L (22-30) mmol/L Anion Gap 15 mmol/L BUN 13 (7-17) mg/dL Creatinine 0.61 (0.52-1.04) mg/dL Est GFR (CKD-EPI)AfAm >90 (>60 ml/min/1.73 sqM) Est GFR (CKD-EPI)NonAf >90 (>60 ml/min/1.73 sqM) Glucose 98 (74-99) mg/dL Lactic Ac Sepsis Rflx Plasma Lactic Acid Richie (0.7-2.0) mmol/L Calcium 9.0 (8.4-10.2) mg/dL Total Bilirubin 0.9 (0.2-1.3) mg/dL AST 29 (14-36) U/L ALT 21 (4-34) U/L Alkaline Phosphatase 46 (38-126) U/L Total Protein 8.1 (6.3-8.2) g/dL Albumin 4.7 (3.5-5.0) g/dL Amylase 61 (30-110) U/L Lipase 110 (23-300) U/L Urine Color Urine Appearance (Clear) Urine pH (5.0-8.0) Ur Specific Supply (1.001-1.035) Urine Protein (Negative) Urine Glucose (UA) (Negative) Urine Ketones (Negative) Urine Blood (Negative) Urine Nitrite (Negative) Urine Bilirubin (Negative) Urine Urobilinogen (<2.0) mg/dL Ur Leukocyte Esterase (Negative) Urine RBC (0-5) /hpf Urine WBC (0-5) /hpf Ur Squamous Epith Cells (0-4) /hpf Urine Mucus (None) /hpf Influenza Type A (PCR) (Not Detectd) Influenza Type B (PCR) (Not Detectd) RSV (PCR) (Not Detectd) SARS-CoV-2 (PCR) (Not Detectd) 08/01/24 08/01/24 08/01/24 Range/Units 00:22 00:22 01:22 WBC (3.8-10.6) k/uL RBC (3.80-5.40) m/uL Hgb (11.4-16.0) gm/dL Hct (34.0-46.0) % MCV (80.0-100.0) fL MCH (25.0-35.0) pg MCHC (31.0-37.0) g/dL RDW (11.5-15.5) % Plt Count (150-450) k/uL MPV Neutrophils % % Lymphocytes % % Monocytes % % Eosinophils % % Basophils % % Neutrophils # (1.3-7.7) k/uL Lymphocytes # (1.0-4.8) k/uL Monocytes # (0-1.0) k/uL Eosinophils # (0-0.7) k/uL Basophils # (0-0.2) k/uL PT (10.0-12.5) sec INR (<1.2) APTT (22.0-30.0) sec Sodium (137-145) mmol/L Potassium (3.5-5.1) mmol/L Chloride (98-107) mmol/L Carbon Dioxide (22-30) mmol/L Anion Gap mmol/L BUN (7-17) mg/dL Creatinine (0.52-1.04) mg/dL Est GFR (CKD-EPI)AfAm (>60 ml/min/1.73 sqM) Est GFR (CKD-EPI)NonAf (>60 ml/min/1.73 sqM) Glucose (74-99) mg/dL Lactic Ac Sepsis Rflx Y Plasma Lactic Acid Richie 2.1 H* (0.7-2.0) mmol/L Calcium (8.4-10.2) mg/dL Total Bilirubin (0.2-1.3) mg/dL AST (14-36) U/L ALT (4-34) U/L Alkaline Phosphatase (38-126) U/L Total Protein (6.3-8.2) g/dL Albumin (3.5-5.0) g/dL Amylase (30-110) U/L Lipase (23-300) U/L Urine Color Urine Appearance (Clear) Urine pH (5.0-8.0) Ur Specific Supply (1.001-1.035) Urine Protein (Negative) Urine Glucose (UA) (Negative) Urine Ketones (Negative) Urine Blood (Negative) Urine Nitrite (Negative) Urine Bilirubin (Negative) Urine Urobilinogen (<2.0) mg/dL Ur Leukocyte Esterase (Negative) Urine RBC (0-5) /hpf Urine WBC (0-5) /hpf Ur Squamous Epith Cells (0-4) /hpf Urine Mucus (None) /hpf Influenza Type A (PCR) Not Detected (Not Detectd) Influenza Type B (PCR) Not Detected (Not Detectd) RSV (PCR) Not Detected (Not Detectd) SARS-CoV-2 (PCR) Not Detected (Not Detectd) 08/01/24 Range/Units 01:47 WBC (3.8-10.6) k/uL RBC (3.80-5.40) m/uL Hgb (11.4-16.0) gm/dL Hct (34.0-46.0) % MCV (80.0-100.0) fL MCH (25.0-35.0) pg MCHC (31.0-37.0) g/dL RDW (11.5-15.5) % Plt Count (150-450) k/uL MPV Neutrophils % % Lymphocytes % % Monocytes % % Eosinophils % % Basophils % % Neutrophils # (1.3-7.7) k/uL Lymphocytes # (1.0-4.8) k/uL Monocytes # (0-1.0) k/uL Eosinophils # (0-0.7) k/uL Basophils # (0-0.2) k/uL PT (10.0-12.5) sec INR (<1.2) APTT (22.0-30.0) sec Sodium (137-145) mmol/L Potassium (3.5-5.1) mmol/L Chloride (98-107) mmol/L Carbon Dioxide (22-30) mmol/L Anion Gap mmol/L BUN (7-17) mg/dL Creatinine (0.52-1.04) mg/dL Est GFR (CKD-EPI)AfAm (>60 ml/min/1.73 sqM) Est GFR (CKD-EPI)NonAf (>60 ml/min/1.73 sqM) Glucose (74-99) mg/dL Lactic Ac Sepsis Rflx Plasma Lactic Acid Richie (0.7-2.0) mmol/L Calcium (8.4-10.2) mg/dL Total Bilirubin (0.2-1.3) mg/dL AST (14-36) U/L ALT (4-34) U/L Alkaline Phosphatase (38-126) U/L Total Protein (6.3-8.2) g/dL Albumin (3.5-5.0) g/dL Amylase (30-110) U/L Lipase (23-300) U/L Urine Color Colorless Urine Appearance Clear (Clear) Urine pH 5.0 (5.0-8.0) Ur Specific Supply 1.007 (1.001-1.035) Urine Protein Negative (Negative) Urine Glucose (UA) Negative (Negative) Urine Ketones 2+ H (Negative) Urine Blood Small H (Negative) Urine Nitrite Negative (Negative) Urine Bilirubin Negative (Negative) Urine Urobilinogen <2.0 (<2.0) mg/dL Ur Leukocyte Esterase Negative (Negative) Urine RBC 1 (0-5) /hpf Urine WBC 1 (0-5) /hpf Ur Squamous Epith Cells <1 (0-4) /hpf Urine Mucus Rare H (None) /hpf Influenza Type A (PCR) (Not Detectd) Influenza Type B (PCR) (Not Detectd) RSV (PCR) (Not Detectd) SARS-CoV-2 (PCR) (Not Detectd) - EKG Data -: EKG Interpreted by Me EKG Comments: 12-lead Electrocardiogram Interpretation Note EKG was reviewed and interpreted by myself. 12-lead ECG performed at 2344 is interpreted by me as revealing normal sinus rhythm at a rate of 101 beats per minute. [place] is normal. [place] interval is 159 ms, QRS duration is 84 ms, QTc is 396 ms.. There were no ST or T wave abnormalities to suggest myocardial ischemia or injury. R wave progression across the precordium was satisfactory. By my interpretation this EKG is non-diagnostic for acute ischemia. Disposition Clinical Impression: Syncope, Dehydration, Nausea and vomiting, Diarrhea Disposition: HOME SELF-CARE Condition: Good Instructions (If sedation given, give patient instructions): Syncope (ED), Acu te Nausea and Vomiting (ED), Acute Diarrhea (ED) Is patient prescribed a controlled substance at d/c from ED?: No Referrals: Justino Montes DO [Primary Care Provider] - 1-2 days Time of Disposition: 01:57
[2024-08-01] MEDS: SODIUM CHLORIDE 0.9% 1,000 ML IV STA (00:27)
[2024-08-01] MEDS: ONDANSETRON 4 MG/2 ML VIAL IVP STA (00:28)
[2024-08-01] MEDS: SODIUM CHLORIDE 0.9% 500 ML 500 ML IV STA (00:28)
[2024-08-01 01:04] LABS: ALT 21 U/L (4-34); African American GFR (CKD) >90 (>60 ml/min/1.73 sqM); Amylase 61 U/L (30-110); Anion Gap 15 mmol/L; Blood Urea Nitrogen 13 mg/dL (7-17); Carbon Dioxide 19 mmol/L (22-30); Chloride 106 mmol/L (98-107); Glucose 98 mg/dL (74-99); Lipase 110 U/L (23-300); Non-African American GFR(CKD) >90 (>60 ml/min/1.73 sqM); Sodium 140 mmol/L (137-145); Total Bilirubin 0.9 mg/dL (0.2-1.3)
[2024-08-01 01:10] LABS: Basophils % (A) 0 %; Eosinophils # (A) 0.1 k/uL (0-0.7); Eosinophils % (A) 1 %; HCT 45.8 % (34.0-46.0); HGB 14.8 gm/dL (11.4-16.0); Lymphocytes # (A) 0.5 k/uL (1.0-4.8); Lymphocytes % (A) 4 %; MCH 29.4 pg (25.0-35.0); MCHC 32.3 g/dL (31.0-37.0); Mean Platelet Volume 8.9; Monocytes # (A) 0.5 k/uL (0-1.0); Monocytes % (A) 4 %; Neutrophils # (A) 10.4 k/uL (1.3-7.7); Neutrophils % (A) 91 %; Platelet Count 161 k/uL (150-450); RBC 5.04 m/uL (3.80-5.40); RDW 12.4 % (11.5-15.5); WBC 11.5 k/uL (3.8-10.6)
[2024-08-01 01:12] LABS: INR 0.9 (<1.2); Prothrombin Time 10.2 sec (10.0-12.5)
[2024-08-01 01:20] LABS: AST 29 U/L (14-36); Albumin 4.7 g/dL (3.5-5.0); Alkaline Phosphatase 46 U/L (38-126); Partial Thromboplastin Time 19.2 sec (22.0-30.0); Total Protein 8.1 g/dL (6.3-8.2)
--- NOTE | 2024-08-01 01:47 | XR ---
EXAM: XR Chest, 1 View CLINICAL HISTORY: ITS.REASON XR Reason: abdominal pain TECHNIQUE: Frontal view of the chest. COMPARISON: No relevant prior studies available. FINDINGS: Lungs: Unremarkable. No consolidation. Pleural space: Unremarkable. No pneumothorax. Heart: Unremarkable. No cardiomegaly. Mediastinum: Unremarkable. Normal mediastinal contour. Bones/joints: Unremarkable. No acute fracture. IMPRESSION: Normal chest x-ray.
[2024-08-01] MEDS: ONDANSETRON 4 MG ODT STARTER PACK 2 TAB BTL PO STA (02:07)
[2024-08-01 02:12] VITALS: BP 118/85; PULSE 100; RESP 15
[2024-08-01 02:14] LABS: Appearance,Urine Clear (Clear); Bilirubin,Urine Negative (Negative); Blood,Urine Small (Negative); Color,Urine Colorless; Glucose,Urine (UA) Negative (Negative); Ketones,Urine 2+ (Negative); Leukocyte Esterase,Urine Negative (Negative); Mucus,Urine Rare /hpf; Nitrite,Urine Negative (Negative); Protein,Urine Negative (Negative); RBC,Urine 1 /hpf (0-5); Specific Gravity,Urine 1.007 (1.001-1.035); Squamous Epithelial Cell,Urine <1 /hpf (0-4); Urobilinogen,Urine <2.0 mg/dL (<2.0); WBC,Urine 1 /hpf (0-5)
== END 2024-08-01 02:12 | disposition home or self-care (01) ==
LOC: EC 23:12
DX: G40.909 Epilepsy, unspecified, not intractable, without status epilepticus (principal); E86.0 Dehydration; R19.7 Diarrhea, unspecified; R11.2 Nausea with vomiting, unspecified; Z87.891 Personal history of nicotine dependence; Z88.0 Allergy status to penicillin; Z91.018 Allergy to other foods
CPT/HCPCS: 36415; 71045; 80053; 81001; 82150; 83605; 83690; 85025; 85610; 85730; 87636; 93005; 96361; 96374; 99285